=== PATIENT | male | born 1995 | race African-American/Black ===

== ENCOUNTER 2017-02-18 15:36 | Emergency (ER) | payer OTHER ==
[2017-02-18 16:03] VITALS: BP 128/77
[2017-02-18] MEDS ORDERED: KETOROLAC TROMETHAMINE INJ/PF 30 MG/1 ML SDV IM ONE (16:36)
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
== END 2017-02-18 17:12 | disposition home or self-care (01) ==
LOC: ER 15:36
DX: S39.012A Strain of muscle, fascia and tendon of lower back, initial encounter (principal); S16.1XXA Strain of muscle, fascia and tendon at neck level, initial encounter; V49.40XA Driver injured in collision with unspecified motor vehicles in traffic accident, initial encounter
CPT/HCPCS: 99283; 96372; J1885